=== PATIENT | female | born 1995 | race Caucasian/White ===

== ENCOUNTER 2021-06-25 08:08 | Emergency (ER) | payer OTHER ==
--- NOTE | 2021-06-25 08:23 | ED Physician Documentation ---
PD HPI NVD - Stated complaint Stated Complaint: VOMITING - Chief complaint Chief Complaint: Abd Pain - History obtained from History obtained from: Patient - History of Present Illness Timing - onset: Today, Last night Timing - duration: Hours Timing - details: Abrupt onset, Still present Associated symptoms: Abdominal pain (aching epigastric area), Loss of appetite. No: Fever, Hematemesis Contributing factors: Alcohol use (she states she drank heavily last night with friends and started to have nausea and vomiting, and has continued with upper abd discomfort and repetitive vomiting this morning.). No: Sick contact, Bad food Review of Systems Constitutional: denies: Fever, Chills Nose: denies: Rhinorrhea / runny nose, Congestion Throat: denies: Sore throat Respiratory: denies: Cough GI: reports: Nausea, Vomiting. denies: Abdominal Swelling, Diarrhea, Hematemesis, Bloody / black stool Neurologic: reports: Generalized weakness, Headache. denies: Focal weakness, Numbness, Near syncope, Altered mental status PD PAST MEDICAL HISTORY - Past Medical History Past Medical History: Yes Cardiovascular: None Respiratory: None Neuro: None Endocrine/Autoimmune: None GI: None HOME APPLIANCE INST[employer]ER: None : None HEENT: None Psych: None Musculoskeletal: None Derm: None - Past Surgical History Past Surgical History: No - Present Medications Home Medications: Ambulatory Orders Medication Instructions Recorded Confirmed Famotidine [Pepcid] 20 mg PO DAILY #15 tablet 06/25/21 Ondansetron Odt [Zofran] 4 mg TL Q6H PRN #10 tablet 06/25/21 - Allergies Allergies/Adverse Reactions: Allergies Allergy/AdvReac Type Severity Reaction Status Date / Time No Known Drug Allergies Allergy Verified 06/25/21 08:15 - Living Situation Living Situation: reports: Alone Living Arrangement: reports: At home - Social History Does the pt smoke?: No Smoking Status: Never smoker Does the pt drink ETOH?: Yes ETOH Use: Other (episodic binges and not daily drinking) Does the pt have substance abuse?: No - Immunizations Immunizations are current?: Yes PD ED PE NORMAL - Vitals Vital signs reviewed: Yes - General General: Alert and oriented X 3, Well developed/nourished, Other (active vomiting in ER. No noted blood in it. ) - Neck Neck: Supple, no meningeal sign, No adenopathy - Cardiac Cardiac: RRR, No murmur - Respiratory Respiratory: Clear bilaterally - Abdomen Abdomen: Normal bowel sounds, Soft, Non distended, No organomegaly, Other (tender without guarding epigastric area. No percussion tender. ) Results - Vitals Vitals: Vital Signs - 24 hr 06/25/21 06/25/21 06/25/21 08:15 08:19 09:42 Temperature 36.8 C 36.9 C Heart Rate 85 80 94 Respiratory 20 20 20 Rate Blood Pressure 117/76 76/46 L 91/58 L O2 Saturation 98 100 100 06/25/21 06/25/21 10:13 11:35 Temperature 37.1 C Heart Rate 81 88 Respiratory 18 24 Rate Blood Pressure 108/58 L 107/74 O2 Saturation 100 98 Oxygen O2 Source Room air - Labs Labs: Laboratory Tests 06/25/21 06/25/21 08:42 08:42 WBC 12.8 H RBC 3.99 L Hgb 13.6 Hct 38.8 MCV 97.2 MCH 34.1 H MCHC 35.1 RDW 11.7 L Plt Count 306 MPV 8.8 Neut # (Auto) 10.9 H Lymph # (Auto) 1.2 L Divide # (Auto) 0.6 Eos # (Auto) 0.0 Baso # (Auto) 0.0 Absolute Nucleated RBC 0.00 Nucleated RBC % 0.0 Sodium 142 Potassium 3.9 Chloride 104 Carbon Dioxide 25 Anion Gap 13.0 BUN 9 Creatinine 0.8 Estimated GFR (MDRD) 89 Glucose 111 H Calcium 9.1 Total Bilirubin 0.7 AST 22 ALT 28 Alkaline Phosphatase 77 Total Protein 8.2 Albumin 4.7 Globulin 3.5 Albumin/Globulin Ratio 1.3 Lipase 29 PD MEDICAL DECISION MAKING - ED course Complexity details: re-evaluated patient (improved moderately. Will give more antiemetic.), considered differential (seems alcoholic gastritis. Give IV fluids, antiemetics, Famotidine. ), d/w patient ED course: sleepy but improved and able to take fluids sips and some salt crackers. Departure - Departure Disposition: 01 Home, Self Care Clinical Impression: Acute gastritis Qualifiers: Gastritis type: unspecified gastritis Gastritis bleeding: without bleeding Qualified Code(s): K29.00 - Acute gastritis without bleeding Nausea and vomiting Qualifiers: Vomiting type: unspecified Vomiting Intractability: intractable Qualified Code(s): R11.2 - Nausea with vomiting, unspecified Condition: Stable Record reviewed to determine appropriate education?: Yes Instructions: ED Gastritis Follow-Up: [facility] [Provider Group] Prescriptions: Famotidine [Pepcid] 20 mg PO DAILY #15 tablet Ondansetron Odt [Zofran] 4 mg TL Q6H PRN #10 tablet PRN Reason: Nausea / Vomiting Comments: Small frequent fluids and bland food today. Progress diet as tolerated. Ondansetron every 4-6 hours if needed for nausea. Your stomach will be irritated and likely be sensitive with extra acid production over the next several days to a week. Add famotidine acid reducing medicine twice daily for a week or so. Recheck if not well improved over the next day or 2 back to normal intake. Avoid excess alcohol. I transmitted the prescriptions to [facility] in [place]. Discharge Date/Time: 06/25/21 11:40
[2021-06-25] MEDS ORDERED: ONDANSETRON 4 MG/2 ML VIAL IVP STA (08:29)
[2021-06-25] MEDS ORDERED: SODIUM CHLORIDE 0.9% 1,000 ML IV STA ×2 (08:29)
[2021-06-25] MEDS ORDERED: FAMOTIDINE 20 MG/2 ML VIAL IVP STA (08:29)
[2021-06-25 08:48] LABS: BASOPHILS % (AUTO) 0.2 %; EOSINOPHILS % (AUTO) 0.2 %; HCT - HEMATOCRIT 38.8 % (37.0-47.0); HGB - HEMOGLOBIN 13.6 g/dL (12.0-16.0); LYMPHOCYTES # (AUTO) 1.2 10^3/uL (1.5-3.5); LYMPHOCYTES % (AUTO) 9.6 %; MEAN CORPUSCULAR HEMOGLOBIN 34.1 pg (27.0-31.0); MEAN CORPUSCULAR HGB CONC 35.1 g/dL (32.0-36.0); MEAN CORPUSCULAR VOLUME 97.2 fL (81.0-99.0); MEAN PLATELET VOLUME 8.8 fL (7.9-10.8); MONOCYTES # (AUTO) 0.6 10^3/uL (0.0-1.0); MONOCYTES % (AUTO) 4.3 %; NEUTROPHILS # (AUTO) 10.9 10^3/uL (1.5-6.6); NEUTROPHILS % (AUTO) 85.3 %; PLT - PLATELET COUNT 306 10^3/uL (130-450); RED BLOOD COUNT 3.99 10^6/uL (4.20-5.40); RED CELL DISTRIBUTION WIDTH 11.7 % (12.0-15.0); WHITE BLOOD COUNT 12.8 x10^3/uL (4.8-10.8)
[2021-06-25 09:06] LABS: ALBUMIN 4.7 g/dL (3.2-5.5); ALBUMIN/GLOBULIN RATIO 1.3 (1.0-2.2); BILIRUBIN,TOTAL 0.7 mg/dL (0.2-1.0); CALCIUM 9.1 mg/dL (8.5-10.3); CREATININE 0.8 mg/dL (0.4-1.0); POTASSIUM 3.9 mmol/L (3.5-5.0); TOTAL PROTEIN 8.2 g/dL (6.7-8.2)
[2021-06-25] MEDS ORDERED: DROPERIDOL 5 MG/2 ML VIAL IVP STA (09:32)
[2021-06-25 11:36] VITALS: BP 107/74
== END 2021-06-25 11:40 | disposition home or self-care (01) ==
LOC: ED 08:08
DX: K29.00 Acute gastritis without bleeding (principal); Z72.89 Other problems related to lifestyle
CPT/HCPCS: 36415; 80053; 83690; 85025; 96361; 96374; 96375; 99284